=== PATIENT | female | born 1985 | race Caucasian/White ===

== ENCOUNTER 2020-03-12 13:08 | Emergency (ER) | payer MEDICARE ==
[~2020-03-12] VITALS: Ht 170.2 cm; Wt 67.8 kg
[2020-03-12] MEDS ORDERED: SODIUM CHLORIDE FLUSH 10ML SYR IVF ONE (13:30)
[2020-03-12 14:03] LABS: BASOPHILS % (AUTO) 1 % (0-1); EOSINOPHILS % (AUTO) 8 % (1-7); LYMPHOCYTES % (AUTO) 24 % (22-44); MEAN CORPUSCULAR HEMOGLOBIN 30.8 pg (27.0-34.8); MEAN CORPUSCULAR HGB CONC 33.3 g/dL (32.4-35.8); MEAN PLATELET VOLUME 8.4 fL (7.4-10.4); MONOCYTES % (AUTO) 8 % (2-9); NEUTROPHILS % (AUTO) 59 % (42-75); PLATELET COUNT 271 x10^3/uL (130-400); RED BLOOD COUNT 4.94 x10^6/uL (3.82-5.3); RED CELL DISTRIBUTION WIDTH 12.8 % (9.6-15.2)
[2020-03-12 14:06] LABS: ALBUMIN 4.4 g/dL (3.4-5.0); ANION GAP 7 mmol/L (5-15); CALCIUM 10.1 mg/dL (8.5-10.1); CHLORIDE 110 mmol/L (98-107)
[2020-03-12 14:10] LABS: MD NO
[2020-03-12 14:12] LABS: ALANINE AMINOTRANSFERASE 12 U/L (12-78); ALKALINE PHOSPHATASE 53 U/L (45-117); BILIRUBIN,TOTAL 0.5 mg/dL (0.2-1.0); CREATININE 1.07 mg/dL (0.55-1.02); TOTAL PROTEIN 8.5 g/dL (6.4-8.2)
--- NOTE | 2020-03-12 15:43 | NUR ---
ORTHOSTATIC VITALS COMPLETE, REPORTS SOME DIZZINESS BUT NO CHANGE IN BLOOD PRESSURE AND HR UNCHANGED WITH REPOSITIONING MEDICATED PER EMAR
[2020-03-12] MEDS ORDERED: MECLIZINE CHEWABLE 25 MG TAB ONE (15:46)
[2020-03-12] MEDS ORDERED: MECLIZINE CHEWABLE 25 MG TAB PO ONE (16:00)
--- NOTE | 2020-03-12 16:02 | NUR ---
REPORT RECEIVED FROM TUAN HASSAN. PLAN OF CARE DISCUSSED
[2020-03-12 16:23] VITALS: BP 99/66
--- NOTE | 2020-03-12 16:28 | NUR ---
Patient given discharge instructions and they have confirmed that they understand the instructions. Patient ambulatory with steady gait, denies dizziness or lightheaded while walking to discharge
== END 2020-03-12 16:30 | disposition home or self-care (01) ==
LOC: ED 15:08
DX: R55 Syncope and collapse (principal); R42 Dizziness and giddiness; R94.31 Abnormal electrocardiogram [ECG] [EKG]; F17.200 Nicotine dependence, unspecified, uncomplicated
CPT/HCPCS: 36415; 80053; 84703; 85025; 93005; 99284